=== PATIENT | male | born 2005 | race Hispanic/Latino ===

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

== ENCOUNTER 2024-11-18 00:25 | Emergency (ER) | payer BC, MEDICAID ==
[~2024-11-18] VITALS: Ht 162.6 cm; Wt 62.1 kg
[~2024-11-18 00:25] MED LIST: CEPH500B PO
[2024-11-18] MEDS: FAMOTIDINE 20MG VIAL IV ONE (00:56)
[2024-11-18] MEDS: 0.9%NACL 1000ML 1,000 ML IV STA (00:57)
[2024-11-18 01:01] LABS: IMMATURE GRANULOCYTE ABSOLUTE 0.06 K/uL (0-1); NUCLEATED RED BLOOD CELLS 0.0 % (0.0-0.19); PLATELET COUNT (AUTO) 263 K/uL (130-400); RED BLOOD CELL COUNT(AUTO) 4.84 MIL/uL (4.50-6.20); RED CELL DISTRIBUTION WIDTH 12.0 % (11.0-15.5); WHITE BLOOD COUNT (AUTO) 12.9 K/uL (4.8-10.8)
[2024-11-18 01:23] LABS: CREATININE 0.8 mg/dL (0.5-1.3); GLOMERULAR FILTR. RATE CALC 129.0 mL/min (>90); GLUCOSE,RANDOM 106.0 mg/dL (70-105); SODIUM SERUM 139.0 mmol/L (136-145); UREA NITROGEN, BLOOD 16.0 mg/dL (7-18)
[2024-11-18 01:29] LABS: ASPARTATE AMINOTRANSFERASE 28.0 U/L (10-37); TOTAL PROTEIN, SERUM 8.1 g/dL (6.0-8.3)
--- NOTE | 2024-11-18 02:04 | ERN ---
ED Note History of Present Illness Stated Complaint: C/O ABD PAIN WITH N X V X DIARRHEA, HEADACHE,DIZZY Chief Complaint: Abdominal Pain Time Seen by MD: 00:39 Time Seen by Midlevel: 00:41 Dictation: 19-year-old male with no past medical history coming in with complaints of generalized abdominal pain, nausea and vomiting diarrhea. Patient states symptoms started this morning. Patient states he has had four episodes of vomiting, no hematemesis, and three episodes of loose stools, no blood in stool, no dark tarry stools. Denies having any fever. Patient admits to yesterday eating a lot of food, states he had a lot of junk food as well and states symptoms started this morning. Allergies: Coded Allergies: Penicillins (Unverified Allergy, Unknown, 11/18/24) Home Meds Active Scripts Cephalexin Monohydrate (Keflex) 500 Mg Cap, 500 MG PO QID for 7 Days, #28 CAP Prov:ROGELIO ROCHA MD 12/28/22 Past Medical History Past Medical History: No Pertinent History Surgical History: None Family History: HTN Social History: Negative, Lives with family Review of System Dictation Constitutional: Negative for fever,chills, and weight loss Eyes: Negative for injury, pain,redness, and discharge ENT: Negative for injury,pain or swelling Cardiovascular: Negative for chest pain, palpitations, and edema Respiratory: Negative for shortness of breath, cough, and wheezing, Abdomen/GI: Positive for abdominal pain, nausea and vomiting and diarrhea Back: Negative for injury and pain : Negative for injury, bleeding and discharge MS/Extremity: Negative for injury and deformity Skin: Negative for rash, and discoloration Neuro: Negative for headache, weakness, numbness, tingling, and seizure Psych: Negative for suicide ideation, homicidal ideation, and hallucinations Review of Systems: was completed Initial Vital Sign VS Vital Signs Date Time Temp Pulse Resp B/P (MAP) Pulse Ox O2 Delivery O2 Flow Rate FiO2 11/18/24 00:26 99.0 69 20 102/71 98 Room Air 11/18/24 00:43 0 21 Physical Exam Dictation General: awake, alert, NAD Head/Face: Normocephalic, atraumatic Eyes: PERRL, EOMI, vision at baseline ENT: oral cavity clear, TMs clear, no signs of infection Neck: Trachea midline, supple, no nuchal rigidity Cardiovascular: RRR, normal S1/S2, No MRGs, no JVD Respiratory: CTAB, no respiratory distress, No rales or wheezes Abdomen: Soft, non-tender, non-distended, normal bowel sounds, no guarding or rebound. Skin: Warm, dry, normal turgor, no rash MS/Extremity: Pulses equal, no cyanosis, neurovascular intact, FROM Neuro: COAx4, GCS 15, strength 5/5, CN 2-12 intact, normal cerebellar exam, normal gait, Psych: Normal behavior, mood, and affect normal Results (Laboratory/Radiology) Laboratory/Radiology Laboratory Tests Test 11/18/24 00:52 White Blood Count 12.9 K/uL (4.8-10.8) H Red Blood Count 4.84 MIL/uL (4.50-6.20) Hemoglobin 15.3 g/dL (14.0-18.0) Hematocrit 45.9 % (42-54) Mean Corpuscular Volume 94.8 fL (80-100) Mean Corpuscular Hemoglobin 31.6 pg (27.0-33.0) Mean Corpuscular Hemoglobin Concent 33.3 g/dL (32.0-36.0) Red Cell Distribution Width 12.0 % (11.0-15.5) Platelet Count 263 K/uL (130-400) Mean Platelet Volume 10.2 fL (7.5-10.5) Immature Granulocyte % (Auto) 0.5 % (0-1) Neutrophils (%) (Auto) 90.4 % (40.0-77.0) H Lymphocytes (%) (Auto) 3.0 % (21.0-51.0) L Monocytes (%) (Auto) 5.5 % (3.0-13.0) Eosinophils (%) (Auto) 0.4 % (0.0-8.0) Basophils (%) (Auto) 0.2 % (0.0-5.0) Neutrophils # (Auto) 11.7 K/uL (1.8-7.7) H Lymphocytes # (Auto) 0.4 K/uL (1.0-4.8) L Monocytes # (Auto) 0.7 K/uL (0.1-1.0) Eosinophils # (Auto) 0.05 K/uL (0.00-0.70) Basophils # (Auto) 0.02 K/uL (0.00-0.20) Absolute Immature Granulocyte (auto 0.06 K/uL (0-1) Nucleated Red Blood Cells 0.0 % (0.0-0.19) White Cell Morphology Comment See comments Sodium Level 139 mmol/L (136-145) Potassium Level 4.1 mmol/L (3.5-5.1) Chloride Level 99 mmol/L (101-111) L Carbon Dioxide Level 29 mmol/L (21-32) Blood Urea Nitrogen 16 mg/dL (7-18) Creatinine 0.8 mg/dL (0.5-1.3) Glomerular Filtration Rate Calc 129 mL/min (>90) Random Glucose 106 mg/dL (70-105) H Total Calcium 9.2 mg/dL (8.5-10.1) Total Bilirubin 1.7 mg/dL (0.2-1.0) H Direct Bilirubin 0.3 mg/dL (0.0-0.3) Aspartate Amino Transf (AST/SGOT) 28 U/L (10-37) Alanine Aminotransferase (ALT/SGPT) 37 U/L (12-78) Alkaline Phosphatase 103 U/L (50-136) Total Protein 8.1 g/dL (6.0-8.3) Albumin 4.7 g/dL (3.5-5.0) Lipase 19 U/L (16-77) Labs Reviewed?: Yes ED Course ED Course Orders Procedure Category Date Status Time Cbc With Differential LAB 11/18/24 Complete 00:41 Basic Metabolic Panel LAB 11/18/24 Complete 00:41 Lipase LAB 11/18/24 Complete 00:41 Hepatic Function Panel LAB 11/18/24 Complete 00:41 0.9%Nacl 1000ml (Ns PHA 11/18/24 In Process 1000ml) 00:41 Ondansetron 4mg Inj PHA 11/18/24 Complete (Zofran 4mg Inj) 01:00 Famotidine 20mg Vial PHA 11/18/24 Complete (Pepcid 20mg Vial) 01:00 Current Medications Medications (Trade) Dose Ordered Sig/Joey Route PRN Reason Start Time Stop Time Status Last Admin Dose Admin Famotidine (Pepcid 20mg Vial) 20 mg ONCE ONCE IV 11/18/24 01:00 11/18/24 01:01 DC 11/18/24 00:56 Ondansetron HCl (zoFRAN 4MG INJ) 4 mg ONCE ONCE IVP 11/18/24 01:00 11/18/24 01:01 DC 11/18/24 00:57 Sodium Chloride 1,000 ml @ 100 mls/hr Q10H STAT IV 11/18/24 00:41 11/18/24 10:40 11/18/24 00:57 Vital Signs Date Time Temp Pulse Resp B/P (MAP) Pulse Ox O2 Delivery O2 Flow Rate FiO2 11/18/24 00:43 98.8 73 18 118/71 99 Room Air* 0 21 11/18/24 00:26 99.0 69 20 102/71 98 Room Air Medical Decision Making MDM MDM: 19-year-old male with no past medical history coming in with complaints of generalized abdominal pain, nausea and vomiting diarrhea. Patient states symptoms started this morning. Patient states he has had four episodes of vomiting, no hematemesis, and three episodes of loose stools, no blood in stool, no dark tarry stools. Denies having any fever. Patient admits to yesterday eating a lot of food, states he had a lot of junk food as well and states symptoms started this morning. CBC shows white count of , no anemia, no thrombocytopenia. Chemistry shows no electrolyte abnormality. Normal kidney function. No transaminitis. Lipase within normal range. After fluids, antiemetic and antiacid medication patient states feels better. Discussed with the patient and family member that more than likely this is gastroenteritis due to the with the heat yesterday. However educated and patient continues with the pain, nausea and vomiting for the next couple of days to return to the hospital. Educated to follow up with PCP in the next 2-3 days. Differential diagnosis: , pancreatitis, gastritis, gastroenteritis Rationale: Tests considered and ordered secondary to shared decision making include: Previous outside records reviewed: Old ER visits. Risk of complication and/or morbidity or mortality of patient management: None Medications-Per medication reconciliation Need for hospitalization: Patient does not meet criteria for hospitalization. Need for emergency major/minor surgery: No There are no social concerns with this patient. Prescription drug management Prescriptions will include symptomatic care Patient's prior external medical records from other ER visits were reviewed by me as indicated. Prior testing and results from previous visits were reviewed. Prior tests were taken into account with medical decision making and resource utilization, independent historian/historians were used to obtain complete medical history. I independently interpreted the test that were performed, results were reviewed by me and considered findings on radiology if ordered. Medical management and examination interpretation discussions were had by me with other qualified healthcare professionals as indicated for the patient's care. DX & DISP Disposition: Discharge Departure Impression: Primary Impression: Gastroenteritis Condition: Stable Additional Instructions: You have gastroenteritis this can last from anywhere from 7-10 days. Avoid any spicy, greasy, fried food. Start with a bland diet increase as tolerated. Follow up with your primary care doctor in 2-3 days. Return to the hospital if you have any worsening symptoms. Referrals: SAULO RANDOLPH MD (PCP) Time of Disposition: 02:03 I have reviewed the case, and I agree with, Diagnosis and Plan RAHEEM BENOITP Nov 18, 2024 02:04
[2024-11-18 02:16] VITALS: BP 120/64; PULSE 68; RESP 18; TEMP 98.7; O2SAT 99
== END 2024-11-18 02:34 | disposition home or self-care (01) ==
LOC: EDH 00:25
DX: K52.9 Noninfective gastroenteritis and colitis, unspecified (principal); Z88.0 Allergy status to penicillin
CPT/HCPCS: 99284; 96374; 96361; 96375; 80076; 80048; 83690; 85025; 36415; J1308; J7030; J2405